=== PATIENT | male | born 1970 | race Caucasian/White ===

== ENCOUNTER 2021-12-22 21:40 | Inpatient (IN) | payer MEDICAID ==
[~2021-12-22] VITALS: Ht 162.6 cm; Wt 104.3 kg
[2021-12-22 21:55] VITALS: BP 134/100
--- NOTE | 2021-12-22 21:58 | NUR ---
TO BED VIA W/C
--- NOTE | 2021-12-22 22:19 | NUR ---
DR SCHMID AT BEDSIDE.
--- NOTE | 2021-12-22 22:24 | NUR ---
51 Y/O M BIB SELF C/O RT ANKLE PAIN 11/08, SEEN IN [facility] THIS AFTERNOON FOR A BROKEN ANKLE, PER PT HE WAS SENT HOME WITH NO PAIN MEDS. LARA
[2021-12-22] MEDS ORDERED: HYDROcodone/APAP 5/325 MG 1 TAB TAB PO ONE (22:25)
[2021-12-22] MEDS ORDERED: KETOROLAC 30 MG/ML VIAL IM ONE (22:25)
--- NOTE | 2021-12-22 23:47 | NUR ---
DR SCHMID AT BEDSIDE.
[2021-12-23] MEDS ORDERED: MORPHINE SULFATE 4 MG/ML SYR IVP ONE
--- NOTE | 2021-12-23 00:16 | NUR ---
X-Ray at bedside.
--- NOTE | 2021-12-23 00:17 | NUR ---
SWAB COLLECTED AND HANDED TO LAB
--- NOTE | 2021-12-23 00:18 | NUR ---
LAB AT BEDSIDE
[2021-12-23 00:30] LABS: BASOPHILS # (AUTO) 0.1 K/uL (0.00-0.22); BASOPHILS % (AUTO) 0.5 % (0.0-2.0); EOSINOPHILS # (AUTO) 0.3 K/uL (0-0.4); EOSINOPHILS % (AUTO) 1.7 % (0.0-4.0); HEMATOCRIT 45.1 % (36-52); HEMOGLOBIN 15.5 g/dL (12.0-18.0); LYMPHOCYTES # (AUTO) 2.7 K/uL (2.0-11.5); LYMPHOCYTES % (AUTO) 17.4 % (20.5-51.1); MEAN CORPUSCULAR HEMOGLOBIN 30 pg (27-31); MEAN CORPUSCULAR HGB CONC 34 g/dL (33-37); MEAN CORPUSCULAR VOLUME 87.6 fL (80-94); MONOCYTES # (AUTO) 1.4 K/uL (0.8-1.0); NEUTROPHILS # (AUTO) 10.9 K/uL (1.8-7.7); NEUTROPHILS % (AUTO) 71.4 % (42.2-75.2); PLATELET COUNT (AUTO) 236 K/uL (140-450); RED BLOOD CELL COUNT(AUTO) 5.15 MIL/uL (4.20-6.10); RED CELL DISTRIBUTION WIDTH 13.3 % (11.6-13.7); WHITE BLOOD COUNT (AUTO) 15.3 K/uL (4.8-10.8)
[2021-12-23 00:40] LABS: ANION GAP 13.6 (8-16); CARBON DIOXIDE 25.4 mmol/L (21-32)
--- NOTE | 2021-12-23 01:45 | NUR ---
RECEIVED TELEPHONE ENDORSEMENT FROM ER NURSE MICK.
--- NOTE | 2021-12-23 01:53 | NUR ---
Patient will be admitted to care of . Admited to M/S. Will go to room 119B. Belongings list completed. Report to CHANTELL SUTTON.
[2021-12-23 01:55] VITALS: BP 134/91
--- NOTE | 2021-12-23 01:55 | NUR ---
PT WHEELED TO [facility] FROM ER BY NURSE MEET VIA [facility]. PT ABLE TO AMBULATE FROM [facility] TO BED WITH ASSIST. PT A/A/O X4, ABLE TO MAKE NEEDS KNOWN. RESPIRATIONS EVEN AND UNLABORED ON RA. NO DISTRESS NOTED. V/S STABLE. PT REPORTED 7/10 RIGHT LOWER EXTREMITY PAIN. PRN PAIN MED NOT YET DUE. PT STATED THAT HE FELT RELIEF AFTER RECEIVING PAIN MED. RIGHT LOWER EXT WITH SPLINT. PT POSITIONED COMFORTABLY IN BED. SKIN INTACT, WARM AND DRY TO TOUCH. IV SITE AT RAC 20G, SL. PT ORIENTED TO ROOM AND ENVIRONMENT. CALL LIGHT WITHIN REACH. SAFETY PRECAUTIONS IN PLACE. PT CONTINUOUSLY BEING MONITORED.
--- NOTE | 2021-12-23 01:56 | NUR ---
The patient's care was reviewed and supervised by Lulu Garcia RN, RN.
--- NOTE | 2021-12-23 02:00 | NUR ---
[facility] SWAB TAKEN AND SENT TO LAB.
[2021-12-23] MEDS: MORPHINE SULFATE 2 MG/ML SYR IVP PRN ×3 (03:28→11:36)
--- NOTE | 2021-12-23 03:28 | NUR ---
PT COMPLAINED OF RIGHT LOWER EXTREMITY PAIN 8/. PRN PAIN MED ADMINISTERED BY CHANTELL CALIXTO.
[2021-12-23 04:00] VITALS: BP 140/70
--- NOTE | 2021-12-23 06:25 | NUR ---
FULL CODE STATUS ORDERED BY
--- NOTE | 2021-12-23 07:12 | NUR ---
ENDORSED PT TO DAY SHIFT NURSE FOR CONTINUITY OF CARE. ALL NEEDS MET THROUGHOUT SHIFT. PT IS STABLE.
--- NOTE | 2021-12-23 07:45 | NUR ---
GOT REPORT FROM THE NIGHT NURSE , PT SLEEPING NO SOB.[id number]
[2021-12-23 08:00] VITALS: BP 149/89
[2021-12-23] MEDS ORDERED: MAG SULF 2000 MG/WATER PREMIX 50 ML IV PRN (08:15)
[2021-12-23] MEDS ORDERED: ACETAMINOPHEN 325 MG TAB PO PRN (08:15)
[2021-12-23] MEDS ORDERED: DOCUSATE SODIUM 100 MG GELCAP PO PRN (08:15)
[2021-12-23] MEDS ORDERED: ZOLPIDEM 10 MG TAB PO PRN (08:15)
[2021-12-23] MEDS ORDERED: MORPHINE SULFATE 2 MG/ML SYR IVP PRN (08:15)
[2021-12-23] MEDS ORDERED: LORazepam 2 MG/ML VIAL IVP PRN (08:15)
[2021-12-23] MEDS ORDERED: ONDANSETRON 4 MG/2 ML VIAL IVP PRN (08:15)
[2021-12-23] MEDS ORDERED: POTASSIUM CHLORIDE 10 MEQ TABER PO PRN (08:15)
--- NOTE | 2021-12-23 10:03 | NUR ---
PATIENT HAS BEEN SCREENED AND CATEGORIZED LOW NUTRITION RISK. PATIENT WILL BE SEEN WITHIN 7 DAYS OF ADMISSION. 12/30/[address]
[2021-12-23] MEDS ORDERED: INSULIN LISPRO SLIDING SCALE 100 UNITS/ML VIAL SUBQ PRN (11:00)
[2021-12-23] MEDS ORDERED: DEXTROSE 50% 50 ML SYR IVP PRN (11:00)
[2021-12-23 12:00] VITALS: BP 149/89
[2021-12-23] MEDS: BLOOD GLUCOSE MONITORING 1 DEV DEV FS SCH ×3 (12:20→21:24)
[2021-12-23] MEDS: HYDROmorphone PFS 2 MG/ML SYR IVP PRN ×2 (14:05→19:04)
[2021-12-23 16:00] VITALS: BP 142/82
--- NOTE | 2021-12-23 16:00 | NUR ---
DISCHARGE PLANNING PATIENT IS A 51-YEAR-OLD MALE ADMITTED ON 12/23/2021 AT [facility]/ED DUE TO COMPLAINTS OF RIGHT ANKLE PAIN. PATIENT REPORTED FALLING OFF A 10 FOOT LADDER AND LANDING ON HIS RIGHT LEG. PATIENT WENT TO [facility] ED AND AN X-RAY WAS DONE PER REPORT PATIENT HAS AN ACUTE FRACTURE OF THE DISTAL TIBIA WITH UP TO 3 MM DISPLACEMENT AND EXTENSION TO THE ANKLE MORTISE. THE RIGHT LOWER EXTREMITY WAS PLACE IN A SPLINT. PATIENT HAS NO SIGNIFICANT MEDICAL HISTORY. (PATIENT IS LATVIAN SPEAKING ONLY). MATHEUS MET WITH PATIENT AND HIS DAUGHTER CATIE MOTTA AT BEDSIDE TO DISCUSS AND GATHER PATIENT'S COLLATERAL INFORMATION. PATIENT WAS AWAKE AND ALERT AND REPORTED LIVING IN AN APARTMENT IN [facility] WITH HIS DAUGHTER. PATIENT STATED HAVING PLENTY OF SUPPORT FROM HIS FAMILY BROTHER LISA MOTTA . PATIENT REPORTED BEEN ACTIVE AND INDEPENDENT AT HOME IN [facility]. PATIENT REPORTED THAT HIS EMERGENCY CONTACT AND MEDICAL DECISION MAKER IS HIS DAUGHTER CATIE MOTTA . PATIENT STATED NOT HAVING ADVANCE DIRECTIVES AND WAS NOT INTERESTED ON GETTING INFORMATION FORMS PROVIDED BY MATHEUS AT THE TIME OF VISIT. PATIENT REPORTED NOT HAVING DME AT HOME AND NOT HAVING ISSUES WITH GETTING OR TAKING ANY MEDICATIONS. PATIENT STATED THAT HE WILL LIKE FOR HIS MEDICATIONS PRESCRIPTIONS TO BE SEND TO [facility] IN [facility]. MATHEUS EXPLAINED TO PATIENT THE IMPORTANCE OF FOLLOWING UP WITH AN APPOINTMENT WITH-IN 5-7 DAYS AFTER DISCHARGE FROM [facility] WITH HIS PCP. PATIENT AGREED AND STATED THAT HE DID NOT HAVE INSURANCE BUT WILL BE APPLYING FOR [employer] INSURANCE AND WILL BE MAKING HIS OWN APPOINTMENT AFTER DISCHARGE. PATIENT DECLINED FOR SW TO MAKE HIS FOLLOW UP APPOINTMENT. MATHEUS PROVIDED PATIENT WITH EMERGENCY RESOURCES, WELL, INFORMATION FOR DPSS, AND A LIST OF LOW-INCOME CLINICS IN HIS AREA FOR PATIENT TO FOLLOW UP WITH AN APPOINTMENT AFTER HE DISCHARGES FROM [facility]. PATIENT STATED THAT HIS DAUGHTER WILL BE ASSISTING WITH TRANSPORTATION BACK HOME WHEN HE IS READY FOR DISCHARGE. MATHEUS WILL FOLLOW UP WITH PATIENT NEEDED.
[2021-12-23 19:08] LABS: APPEARANCE,URINE CLEAR (CLEAR); BILIRUBIN,URINE NEGATIVE (NEGATIVE); BLOOD, URINE NEGATIVE (NEGATIVE); COLOR,URINE YELLOW (YELLOW); LEUKOCYTE ESTERASE ,URINE NEGATIVE (NEGATIVE); NITRITE, URINE NEGATIVE (NEGATIVE); UGLUCOSE NEGATIVE (NEGATIVE)
[2021-12-23] MEDS ORDERED: HYDROcodone/APAP 10/325 MG 1 TAB TAB PO PRN ×2 (19:35→22:30)
--- NOTE | 2021-12-23 19:35 | NUR ---
PATIENT ENDORSEMENT WAS FROM [facility], PATIENT WAS STABLE DURING SHIFT REPORT. PATIENT IN BED AND DR LINDQUIST IS AT BEDSIDE EXAMINING PATIENT' S RIGHT FOOT. DR LINDQUIST STATED THAT HIS FOOT IS TOO SWOLLEN FOR SURGERY AT THIS TIME. HE WILL REACH OUT TO DR RODRÍGUEZ AND INFORM HER OF HIS CONSULTATION WITH RECOMMENDATION. PATIENT WAS WITH FAMILY MEMBER AT BEDSIDE. COMPLAINED OF PAIN BUT PAIN MEDICATION WAS GIVEN PRIOR TO NURSING ARRIVAL. NO NOTED RESPIRATORY DISTRESS AT THIS TIME. SIDE RAILS UP X TWO. CALL LIGHT WITHIN REACT FOR ASSISTANCE. DR LINDQUIST INFORMED PATIENT THAT HE NEEDS POSSIBLE CRUTCHES BECAUSE NO WEIGHT ON THE LEG UNTIL S/P SURGICAL POST CARE STATES. [email or web address]
[2021-12-23 20:00] VITALS: BP 135/92
[2021-12-23] MEDS: HYDROcodone/APAP 10/325 MG 1 TAB TAB PO PRN (22:45)
--- NOTE | 2021-12-23 23:19 | NUR ---
PATIENT WAS GIVEN NORCO PER MD ORDERS. PHARMACY WAS NOT ABLE TO HAVE THE MEDICATION SHOW IN [place]MN[place] UNDER PRN SO IT WAS OVERRIDE. SPOKE WITH MEÑO AT THE OVERNIGHT PHARMACY. NURSING WILL MONITOR FOR SIDE EFFECTS AND EFFECTIVENESS OF THE MEDICATION. [email or web address]
[2021-12-24] MEDS: HYDROmorphone PFS 2 MG/ML SYR IVP PRN ×2 (01:06→08:36)
--- NOTE | 2021-12-24 01:06 | NUR ---
PT VERBALIZED OF SEVERE PAIN ON RIGHT FOOT, PAIN MEDICATION DILAUDID ADMINISTERED ORDERED. WILL CONTINUE TO MONITOR.
--- NOTE | 2021-12-24 01:06 | NUR ---
PT'S SEVERE PAIN 10/10, NOTED OF FACIAL GRIMACING.
--- NOTE | 2021-12-24 03:27 | NUR ---
NURSING NOTED PATIENT IN BED ASLEEP. NO NOTED S/S OF PAIN/DISTRESS. MEDICATION FOR PAIN WAS EFFECTIVE. NO NOTED S/S OF RESPIRATORY DISTRESS. CALL LIGHT WITHIN REACH. SIDE RAILS UP X 2 FOR SAFETY AND COMFORT. [email or web address]
[2021-12-24 04:00] VITALS: BP 132/93
[2021-12-24 05:22] LABS: BASOPHILS % (AUTO) 0.3 % (0.0-2.0); EOSINOPHILS # (AUTO) 0.6 K/uL (0-0.4); EOSINOPHILS % (AUTO) 5.1 % (0.0-4.0); HEMATOCRIT 41.9 % (36-52); HEMOGLOBIN 14.4 g/dL (12.0-18.0); LYMPHOCYTES # (AUTO) 3.7 K/uL (2.0-11.5); LYMPHOCYTES % (AUTO) 31.2 % (20.5-51.1); MEAN CORPUSCULAR HEMOGLOBIN 30 pg (27-31); MEAN CORPUSCULAR HGB CONC 34 g/dL (33-37); MONOCYTES # (AUTO) 1.1 K/uL (0.8-1.0); MONOCYTES % (AUTO) 9.3 % (1.7-9.3); NEUTROPHILS # (AUTO) 6.4 K/uL (1.8-7.7); NEUTROPHILS % (AUTO) 54.1 % (42.2-75.2); PLATELET COUNT (AUTO) 231 K/uL (140-450); RED BLOOD CELL COUNT(AUTO) 4.77 MIL/uL (4.20-6.10); RED CELL DISTRIBUTION WIDTH 13.4 % (11.6-13.7); WHITE BLOOD COUNT (AUTO) 11.8 K/uL (4.8-10.8)
--- NOTE | 2021-12-24 05:24 | NUR ---
DURING VITAL SIGNS, PATIENT DENIED ANY PAIN/DISCOMFORT. NO NOTED RESPIRATORY DISTRESS. SIDE RAILS U X2. CALL LIGHT WITHIN REACH FOR ASSISTANCE. [email or web address]
[2021-12-24 06:15] LABS: ANION GAP 13.4 (8-16); CARBON DIOXIDE 27.4 mmol/L (21-32); CREATININE 0.9 mg/dL (0.6-1.3); POTASSIUM 3.8 mmol/L (3.5-5.1)
[2021-12-24] MEDS: BLOOD GLUCOSE MONITORING 1 DEV DEV FS SCH ×2 (06:33→12:16)
--- NOTE | 2021-12-24 07:21 | NUR ---
ENDORSED PATIENT TO PAYAL MACIAS FOR CONTINUITY OF CARE, PATIENT WAS STABLE DURING SHIFT CHANGE. [email or web address]
--- NOTE | 2021-12-24 07:45 | NUR ---
RECEIVED REPORT FROM AM SHIFT NURSE FROM CHANGE OF ASSIGNEMENT. PATIENT LYING IN BED IN STABLE CONDITION WITH PAIN ON RLE. WILL GIVE PAIN MEDICATIONS. AAOX4, SPLINT ON RLE INTACT, IV SITE INTACT, PATENT ON SALINE LOCK. CLOSED SCABS ON LLE NOTED. REVIEWED PLAN OF CARE WITH PATIENT. SAFETY MEASURES IN PLACE, CALL LIGHT WITHIN REACH. WILL CONTINUE TO MONITOR.
--- NOTE | 2021-12-24 08:40 | NUR ---
COMPLAINS OF 9/10 PAIN ON RLE, DILAUDID PRN GIVEN AT THIS TIME. WILL CONTINUE TO MONITOR.
[2021-12-24] MEDS ORDERED: HYDR-5080 PO (09:21)
[2021-12-24] MEDS ORDERED: IBUP-2213 PO (09:22)
[2021-12-24] MEDS: HYDROcodone/APAP 10/325 MG 1 TAB TAB PO PRN (12:18)
--- NOTE | 2021-12-24 12:19 | NUR ---
COMPLAINS OF RLE PAIN, NORCO GIVEN AT THIS TIME.
--- NOTE | 2021-12-24 12:35 | NUR ---
DISCHARGE INSTRUCTIONS PROVIDED TO PATIENT IN PREFERRED LANGUAGE OF ARMENIAN, DAUGHTER AT BEDSIDE TO TRANSLATE, REFUSED [employer]. INSTRUCTIONS ON FOLLOW-UP WITH ORTHOPEDIC DR. LINDQUIST, NEW/CHANGED MEDICATION REGIMEN/SIDE EFFECTS, DIET REGIMEN, AND RLE SPLINT CARE. ANSWERED ALL OF PATIENT'S/DAUGHTER'S QUESTIONS. IV SITE REMOVED WITH MINIMAL BLOOD AND LUMEN COMPLETELY INTACT. ID BANDS REMOVED. ESCORTED PATIENT DOWN TO LOBBY VIA WHEELCHAIR. PATIENT ABLE TO TRANSFER SELF WITH STANDBY ASSIST TO DAUGHTER'S CAR. PATIENT DISCHARGED AT THIS TIME IN STABLE CONDITION TO HOME.
== END 2021-12-24 12:35 | disposition home or self-care (01) | DRG 342 ==
LOC: MED 21:40 → MTU 12-23 01:37
PROVIDERS: ADMIT Family Medicine; ATTEND Family Medicine
DX: S82.251A Displaced comminuted fracture of shaft of right tibia, initial encounter for closed fracture (principal); E83.51 Hypocalcemia; Z20.822 Contact with and (suspected) exposure to COVID-19; D72.829 Elevated white blood cell count, unspecified; X58.XXXA Exposure to other specified factors, initial encounter; Y93.89 Activity, other specified; Y92.89 Other specified places as the place of occurrence of the external cause; Y99.8 Other external cause status
CPT/HCPCS: 36415; 73610; 73700; 80048; 81003; 82948; 83735; 85025; 87081; 96372; 96374; 99285; J0696; J1170; J1815; J1885; J2270; J7060; Q0092